=== PATIENT | male | born 1950 | race Caucasian/White ===

== ENCOUNTER 2017-11-07 16:38 | Emergency (ER) | payer OTHER, MEDICARE ==
[~2017-11-07] VITALS: Ht 190.5 cm; Wt 90.7 kg
--- NOTE | 2017-11-07 18:15 | CT SCAN REPORT ---
EXAMINATION: CT HEAD WITHOUT CONTRAST CLINICAL INFORMATION: Headache after fall. COMPARISON: None TECHNIQUE: Contiguous axial imaging was performed from the skull base to vertex without intravenous administration of contrast. DLP: 621.20 mGy-cm FINDINGS: There is no evidence of acute intracranial hemorrhage, midline shift or mass effect. Sweeney to white matter differentiation is well preserved. No evidence of acute territorial infarction. Ventricles and cortical sulci are normal. No abnormal extra-axial fluid collection. Postsurgical changes are noted in the left mastoid temporal region. The visualized paranasal sinuses are clear. Right mastoid air cells and middle ear cavity are well-aerated. Calvarial soft tissues are unremarkable. IMPRESSION: No acute intracranial pathology.
--- NOTE | 2017-11-07 18:17 | RADIOLOGY REPORT ---
EXAMINATION: XR HIP, RIGHT CLINICAL INFORMATION: Right hip pain after fall. COMPARISON: None TECHNIQUE: Two views of the right hip. FINDINGS: The femoral head is well-seated in the acetabulum. Hip joint space is preserved. No evidence of acute fracture or dislocation. Normal osseous mineralization. No soft tissue calcifications. IMPRESSION: No evidence of acute fracture or dislocation in the right hip.
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
[2017-11-07] MEDS ORDERED: PERCOCET 5-3251 EACH PO ×2 (18:43→18:55)
[2017-11-07 19:20] VITALS: BP 131/79
== END 2017-11-07 19:21 ==
LOC: ERH 16:38
DX: M25.551 Pain in right hip (principal)
CPT/HCPCS: 73502-RT